=== PATIENT | female | born 1975 | race Caucasian/White ===

== ENCOUNTER → 2024-04-01 | Outpatient (CLI) | payer OTHER ==
[~2024-04-01] MED LIST: CEPH250A; OXYACE5T
== END ==
LOC: LAB 10:38 → LAB SHORT 10:38
DX: R87.613 High grade squamous intraepithelial lesion on cytologic smear of cervix (HGSIL) (principal); R87.810 Cervical high risk human papillomavirus (HPV) DNA test positive
CPT/HCPCS: 88305; 88342

== ENCOUNTER → 2024-07-31 | Outpatient (CLI) | payer OTHER ==
[2024-07-31 10:35] LABS: BASOPHILS ABSOLUTE AUTO 0.03 K/mm3 (0.00-0.23); BASOPHILS PERCENT AUTO 2 % (0-2); EOSINOPHILS ABSOLUTE AUTO 0.08 K/mm3 (0.00-0.68); EOSINOPHILS PERCENT AUTO 4 % (0-6); Hemoglobin 9.9 g/dL (11.5-16.0); IMMATURE GRAN ABSOLUTE AUTO 0.01 K/mm3 (0.00-0.10); IMMATURE GRAN PERCENT AUTO 1 % (0-1); LYMPHOCYTES ABSOLUTE AUTO 0.27 K/mm3 (0.84-5.20); LYMPHOCYTES PERCENT AUTO 14 % (21-46); MONOCYTES ABSOLUTE AUTO 0.37 K/mm3 (0.16-1.47); MONOCYTES PERCENT AUTO 20 % (4-13); Mean Platelet Volume 8.2 fL (9.1-12.4); NEUTROPHILS ABSOLUTE AUTO 1.12 K/mm3 (1.96-9.15); NEUTROPHILS PERCENT AUTO 60 % (41-73); Platelet Count 163 K/mm3 (150-400); White Blood Cell Count 1.88 K/mm3 (4.00-11.30)
[2024-07-31 10:56] LABS: Percent Saturation 51.9 % (15.0-50.0)
[2024-07-31 11:03] LABS: Mean Corpuscular HGB 20.8 pg (26.0-34.0); Mean Corpuscular HGB Conc 29.1 g/dL (31.5-36.5); Mean Corpuscular Volume 72 fL (80-100); Red Blood Cell Count 4.75 M/mm3 (3.80-5.20)
== END | disposition home or self-care (01) ==
LOC: LAB 10:24 → LAB SHORT 10:24
PROVIDERS: Registered Nurse Oncology
DX: D50.9 Iron deficiency anemia, unspecified (principal)
CPT/HCPCS: 82728; 83540; 83550; 85025

== ENCOUNTER 2025-01-22 12:06 | Day surgery (SDC) | payer OTHER ==
[~2025-01-22] VITALS: Ht 170.2 cm; Wt 77.1 kg
[~2025-01-22 12:06] MED LIST changes: +EpiNEPhrine 1 MG/1 ML 1ML Vial ONE; +Glycopyrrolate 0.2 MG/ML 1MLVIAL ONE; +Ondansetron HCl 2 MG / ML 2ML Vial ONE
== END 2025-01-22 14:55 | disposition home or self-care (01) ==
LOC: ORSCSDS 12:06
PROVIDERS: Surgery
PROC: 0DJD8ZZ Inspection of Lower Intestinal Tract, Via Natural or Artificial Opening Endoscopic (ICD-10-PCS; principal; 2025-01-22 13:30)
DX: K62.5 Hemorrhage of anus and rectum (principal); Z86.718 Personal history of other venous thrombosis and embolism; Z86.001 Personal history of in-situ neoplasm of cervix uteri; K62.7 Radiation proctitis; Z87.891 Personal history of nicotine dependence; Z79.01 Long term (current) use of anticoagulants; Z79.899 Other long term (current) drug therapy
CPT/HCPCS: J0165; J2003; J2405; J2704